=== PATIENT | male | born 1960 | race Caucasian/White ===

== ENCOUNTER 2023-02-08 00:16 | Inpatient (IN) | payer MEDICARE, MEDICAID, SELFPAY ==
[2023-02-08 00:47] VITALS: BP 105/72; PULSE 66; RESP 18; TEMP 36.3; O2SAT 96
[2023-02-08 02:17] VITALS: BMI 24.3
--- NOTE | 2023-02-08 03:30 | PC.ADMIT ---
Pt is a 62yo male admitted to the unit after referral from the [facility] [employer] at [facility] ED. Pt arrived on the unit at 0030. Legal status CV 15mins safety check. Pt has no known medical issues. Pt has no known substance use. Pt unable to participate in admission assessment due to mental status and feeling tired but per Crisis notes, Pt was brought in by the police due to him yelling around the clock for four days at his home. He is severely decompensated by psychosis and a mood disorder. He made complaints about his roommate and states he is angry at them. Assessment reports that he has not been treatment or medication complaint in the community. Pt seems to have some presybeterian/political preoccupation per Crisis notes. Pt's thought process is thoroughly impaired and he is tangential as per Crisis notes. Pt did not seem to be able to articulate why he presented and why he is upset at his roommates as per Crisis noted.Upon arrival to unit, Pt calm, cooperative, flat affect , guarded, making minimal eye contact. Pt thought process during admission process was very tangential or did not respond to questions asked. Dr Lebron notified of Pt's admission and orders obtained. Pt denies any SI/HI/AH/VH upon assessment. Pt reports feeling safe in hospital.
[2023-02-08 09:00] VITALS: BP 127/79; PULSE 66; RESP 16; TEMP 36.8; O2SAT 97
[2023-02-08 10:02] VITALS: BMI 24.4
--- NOTE | 2023-02-08 12:28 | PC.NURSE ---
I attempted assessment of patient this morning. He did not respond appropriately to assessment questions i.e. when asked if he had any cough he stated, That is black magic. and I am the most in touch with the spirits in the whole world
--- NOTE | 2023-02-08 12:43 | HO.PM.IMCN ---
History of Present Illness Data of Consult Service Date: 02/08/23 Requesting physician: Lenny Millard Primary Care Provider: DANIELLE ROBLES MD HPI Reason for consult: medical H&P Patient without significant medical history admitted to psychiatry from [facility] ED with consult placed to hospitalist service for medical H&P. 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 No evidence of trauma. No complaints. Denies etoh use, cigarette smoking, or drug use. Review of Systems Review of Systems: General: No fevers, malaise, unintentional weight loss HEENT: No blurred vision, diplopia. No sore throat, nasal congestion, rhinorrhea, sinus pain, ear pain Cardiovascular: No chest pain, palpitations, or leg edema Respiratory: No shortness of breath, wheezing, cough GI: No abdominal pain, nausea, vomiting, diarrhea, constipation, melena, hematochezia : No dysuria, hematuria, increased urinary frequency, decreased urinary output MSK: No myalgia, back pain Neuro: No headaches, weakness, paresthesias Skin: No rashes or lesions [facility] Medical History No known health problems Social History Household Members: Unknown / Unable to assess Housing: Other Housing Other:: snf Unable to assess alcohol history related to: Unknown Patient Tobacco Use Status: Tobacco use Unknown Use of substances other than those prescribed or required for medical reasons: Unknown Currently Displaying Signs/Symptoms of Drug Intoxication Withdrawal: No Advance Directives: No Advance Directives Information Provided: No Do you have thoughts of harming others: None Do you have a plan to hurt others: No Plan Recently lost weight without trying: Unsure How much weight loss: Unsure Nutrition Risks: No Nutritional Risk Poor oral hygiene: No Meds Allergies Allergy/AdvReac Type Severity Reaction Status Date / Time No Known Allergies Allergy Verified 02/08/23 00:34 Active Medications: Current Medications Acetaminophen (Acetaminophen 325 Mg Tablet) 650 mg PO Q6H PRN PRN Reason: Headache/Pain Mild Scale (1-3) Al Hydroxide/Mg Hydroxide (Magnesium Hydrox/Alum Hydrox 30 Ml Oral.Susp) 30 ml PO Q6H PRN PRN Reason: Heartburn/Nausea Hydroxyzine HCl (Hydroxyzine Hcl 25 Mg Tablet) 25 mg PO Q6H PRN PRN Reason: Anxiety Magnesium Hydroxide (Milk Of Magnesia 30 Ml Oral.Susp) 30 ml PO DAILY PRN PRN Reason: Constipation Nicotine Polacrilex (Nicotine Polacrilex 2 Mg Gum) 4 mg BUCCAL Q2H PRN PRN Reason: Nicotine Cravings Olanzapine (Olanzapine 5 Mg Tablet) 5 mg PO TID PRN PRN Reason: agitation Trazodone HCl (Trazodone Hcl 50 Mg Tablet) 50 mg PO BEDTIME MRX1 PRN PRN Reason: Insomnia Home Medications Medication Instructions Recorded Confirmed Last Taken Type No Known Home Meds 02/08/23 02/08/23 Unknown History Physical Exam Vital Signs and Narrative: Vital Signs: Last Vital Signs Temp 98.3 F 02/08/23 09:00 Pulse 66 02/08/23 09:00 Resp 16 02/08/23 09:00 BP 127/79 02/08/23 09:00 Pulse Ox 97 02/08/23 09:00 O2 Del Method Room Air 02/08/23 09:00 BMI result Body Mass Index 24.4 Constitutional - Awake and Alert, No apparent distress Eyes - PERRLA, EOMI Cardiovascular - S1S2, RRR, No edema Respiratory - Normal lung expansion, Normal respiratory effort, No respiratory distress, CTA bilaterally Gastrointestinal - NT / ND; +BS; No rebound or guarding Extremities - no calf tenderness bilaterally, no swelling Musculoskeletal - Normal inspection, normal ROM Skin - Warm/Dry Neurological - Alert & oriented x3, CN II-XII in tact, 5/5 strength BUE and BLE Psychological - pressured speech, disorganized thoughts, delusional Assessment and Plan (1) Routine medical exam: Status: Acute Plan Patient without significant medical history admitted to psychiatry from [facility] ED with consult placed to hospitalist service for medical H&P. #Psychosis -plan per psychiatry Reviewed hematology studies, chemistries, UA, EKG all of which are reassuring. Pt denies any complaints at this time and denies any known medical history. Vital stable. Thank you for allowing me to participate in this consult. Signing off at this time. Please do not hesitate to call for further questions. Time Spent With Patient Time: Total time managing care of this patient today ____ minutes.
--- NOTE | 2023-02-08 13:33 | HO.PSYADMNOT ---
HPI Date of Service: 02/08/23 Chief Complaint: Unspecified schizophrenia, Delusional D/o Sources of Information: patient interviewed, chart reviewed and crisis/core team assessment reviewed HPI Subjective Notes: Calderon Warning and Conditional Voluntary Narrative: Pt is a 62 yo male who presents with history of psychotic illness, brought to ED by police for non-stop yelling insight his home, disorganized in speech and behavior. Pt brought with him a bag of scabs... and referencing Malcolm Muro, saying he has anus oil and that his blood is ivis to save mankind. On admission patient is disorganized in speech, rambling about many sabianism things, talking about visible vs invisible people... Patient talks about being haunted by his brother. Patient is religiously focused, referring to Malcolm and his interactions with visible/visible people... Patient is tangential, with pressured speech and hard to interrupt; personal lines underwriter has to raise his hand to ask questions; . Initially he acknowledges AH but then says he is not at liberty to disclose that information. Patient knows that he was brought to the hospital by the police since he was yelling inside his house which was upsetting his neighbors. He shares about irritations he has with housemates such as the un-cleanliness of 1 of them and that he plans to move out. Patient references medication and how it is from the devil and that it was made purposely to manipulate people. He says he refuses antipsychotic medication of any kind. Tried to assess for history manic episodes which was difficult however patient said that he sleeps fine and sleeps every night. Past Psychiatric History: Unclear Medical Evaluation Reviewed: Hospitalist Romero Pending [facility] Medical History (Updated 02/08/23 @ 18:10 by Luke Lebron MD) No known health problems Schizoaffective disorder, bipolar type Family History: Brother: Committed suicide by hanging Sister: On a lot of medication Social History: Grew up locally; older brother and older sister Substance History: Deferred Trauma History: Patient found his brother by suicide; untied the noose Diagnostics Vital Signs (24Hr): Vital Signs - 24 hr 02/08/23 00:47 02/08/23 09:00 Temperature 97.4 F 98.3 F Pulse Rate 66 66 Respiratory Rate 18 16 Blood Pressure 105/72 127/79 Pulse Oximetry 96 97 Oxygen Delivery Method Room Air BMI result Body Mass Index 24.4 Meds/Allergies Meds Home Medications Medication Instructions Recorded Confirmed Type No Known Home Meds 02/08/23 02/08/23 History Allergies Allergies Allergy/AdvReac Type Severity Reaction Status Date / Time No Known Allergies Allergy Verified 02/08/23 00:34 Mental Status Exam Mental Status Exam Narrative: Pt is alert and oriented; behavior is cooperative, friendly, mildly hyperactive; patient is not in distress; dressed in hospital attire, disheveled and malodorous; mood is described as okay and affect expansive; eye contact appropriate; Speech is pressured and difficult to interrupt; normal volume and prosody; no psychomotor agitation/retardation present; thought process can be goal directed but gets quickly circumstantial and tangential; Thought content is on various sabianism ideas and trouble with his housemate; patient expresses some paranoid delusional ideations and some grandiosity; denies any SI/HI. Positive for Patients insight and judgment impaired Assessment & Plan Assessment & Plan (1) Schizoaffective disorder, bipolar type: Status: Acute Code(s): F25.0 - Schizoaffective disorder, bipolar type Plan Pt is a 62 yo male who presents with history of psychotic illness, brought to ED by police for non-stop yelling insight his home, disorganized in speech and behavior. Pt brought with him a bag of scabs... and referencing Malcolm Muro, saying he has anus oil and that his blood is ivis to save mankind. On admission patient is disorganized in speech, rambling about many sabianism things, talking about visible vs invisible people... Patient talks about being haunted by his brother. Patient is religiously focused, referring to Malcolm and his interactions with visible/visible people... Patient is tangential, with pressured speech and hard to interrupt; personal lines underwriter has to raise his hand to ask questions; . Initially he acknowledges AH but then says he is not at liberty to disclose that information. Patient knows that he was brought to the hospital by the police since he was yelling inside his house which was upsetting his neighbors. He shares about irritations he has with housemates such as the un-cleanliness of 1 of them and that he plans to move out. Patient references medication and how it is from the devil and that it was made purposely to manipulate people. He says he refuses antipsychotic medication of any kind. Tried to assess for history manic episodes which was difficult however patient said that he sleeps fine and sleeps every night. Impression: Patient is disorganized in speech behavior; seems mildly hyperactive, with pressured speech. Not sure history and while it is possible patient could be bipolar, seems more likely schizoaffective which will be a provisional diagnosis for now. Patient refuses medication and has no insight into psychiatric illness, though he did acknowledge that his yelling was bothering his neighbors and that he would stop. Need to gather collateral and find out if patient has been able to overall function in the community without medication. Plan: CV Q 15 minute checks Will add Zyprexa p.r.n. Patient refuses any scheduled antipsychotics Will try and collect collateral to see if patient has a history of being overall able to l function in the community without medication Labs: CBC, lytes, bun/cr, Ca, UDS, UA all WNL Qtc 420 Patient educated on: diagnosis and medication risk/benefits Informed Consent: does not understand and further education needed Reason for continued inpatient stay Substantial Risk for: med/psych decompensation Statement Statement: I have reviewed the history and physical and performed a pertinent examination on my patient. No changes have occurred unless specified. If the History and Physical was not performed prior to admission, the Hospitalist's service will be consulted for completing the admission physical. Time Spent With Patient Time: Total time managing care of this patient today ____ minutes.
[2023-02-08 20:46] VITALS: BP 120/70; PULSE 78; RESP 18; O2SAT 97
[2023-02-08] MEDS: OLANZapine 5 MG TABLET PO (20:50)
--- NOTE | 2023-02-09 09:31 | P.PNPSI_ITS ---
Subjective Subjective Date of Service: 02/09/23 Reason For Visit: Unspecified schizophrenia, Delusional D/o Interim History: met with patient; discussed with team Pt mostly keeping to himself; intermittently expressing delusional thoughts, talking about the devil. Malodorous and resistant to care. No complaints, no requests. Mental Status Exam Mental Status Exam Narrative: Pt is alert and oriented; behavior is semi-cooperative, some irritability; patient is not in distress; dressed in hospital attire, disheveled and malodorous; mood is described as okay and affect congruent; eye contact appropriate; Speech is a little pressured; normal volume and prosody; no psychomotor agitation/retardation present; thought process can be goal directed but gets quickly circumstantial and tangential; Thought content is on various sabianism ideas and trouble with his housemate; patient expresses some paranoid delusional ideations and some grandiosity; denies any SI/HI. Positive for AH Patients insight and judgment impaired, however maybe close to baseline Diagnostics Vital Signs (24Hr): Vital Signs - 24 hr 02/08/23 20:46 Pulse Rate 78 Respiratory Rate 18 Blood Pressure 120/70 Pulse Oximetry 97 Oxygen Delivery Method Room Air BMI result Body Mass Index 24.4 Medications Medications Current Medications Acetaminophen (Acetaminophen 325 Mg Tablet) 650 mg PO Q6H PRN PRN Reason: Headache/Pain Mild Scale (1-3) Al Hydroxide/Mg Hydroxide (Magnesium Hydrox/Alum Hydrox 30 Ml Oral.Susp) 30 ml PO Q6H PRN PRN Reason: Heartburn/Nausea Hydroxyzine HCl (Hydroxyzine Hcl 25 Mg Tablet) 25 mg PO Q6H PRN PRN Reason: Anxiety Magnesium Hydroxide (Milk Of Magnesia 30 Ml Oral.Susp) 30 ml PO DAILY PRN PRN Reason: Constipation Nicotine Polacrilex (Nicotine Polacrilex 2 Mg Gum) 4 mg BUCCAL Q2H PRN PRN Reason: Nicotine Cravings Olanzapine (Olanzapine 5 Mg Tablet) 5 mg PO TID PRN PRN Reason: agitation Last Admin: 02/08/23 20:50 Dose: 5 mg Trazodone HCl (Trazodone Hcl 50 Mg Tablet) 50 mg PO BEDTIME MRX1 PRN PRN Reason: Insomnia Allergies Allergies Allergy/AdvReac Type Severity Reaction Status Date / Time No Known Allergies Allergy Verified 02/08/23 00:34 Assessment & Plan Assessment & Plan (1) Schizoaffective disorder, bipolar type: Status: Acute Code(s): F25.0 - Schizoaffective disorder, bipolar type Plan Pt is a 62 yo male who presents with history of psychotic illness, brought to ED by police for non-stop yelling insight his home, disorganized in speech and beh avior. Pt brought with him a bag of scabs... and referencing Malcolm Muro, saying he has anus oil and that his blood is ivis to save mankind. On admission patient is disorganized in speech, rambling about many sabianism things, talking about visible vs invisible people... Patient talks about being haunted by his brother. Patient is religiously focused, referring to Malcolm and his interactions with visible/visible people... Patient is tangential, with pressured speech and hard to interrupt; internal communications writer has to raise his hand to ask questions; . Initially he acknowledges AH but then says he is not at liberty to disclose that information. Patient knows that he was brought to the hospital by the police since he was yelling inside his house which was upsetting his neighbors. He shares about irritations he has with housemates such as the un- cleanliness of 1 of them and that he plans to move out. Patient references medication and how it is from the devil and that it was made purposely to manipulate people. He says he refuses antipsychotic medication of any kind. Tried to assess for history manic episodes which was difficult however patient said that he sleeps fine and sleeps every night. Impression: Patient is disorganized in speech behavior; seems mildly hyperactive, with pressured speech. Not sure history and while it is possible patient could be bipolar, seems more likely schizoaffective which will be a provisional diagnosis for now. Patient refuses medication and has no insight into psychiatric illness, though he did acknowledge that his yelling was bothering his neighbors and that he would stop. Need to gather collateral and find out if patient has been able to overall function in the community without medication. Hospital course: 02/09 patient keeping to himself, irritable, intermittently expressing delusional thoughts; refusing medications Plan: 3 day Q 15 minute checks Will add Zyprexa p.r.n. Patient refuses any scheduled antipsychotics Will try and collect collateral to see if patient has a history of being overall able to l function in the community without medication Labs: CBC, lytes, bun/cr, Ca, UDS, UA all WNL Qtc 420 Patient educated on: diagnosis Informed Consent: does not understand Reason for continued inpatient stay Substantial Risk for: med/psych decompensation Time Spent With Patient Time: Total time managing care of this patient today ____ minutes.
[2023-02-09 09:35] VITALS: BP 178/90; PULSE 98; RESP 16; TEMP 36.4; O2SAT 98
[2023-02-09] MEDS: OLANZapine 5 MG TABLET PO (21:15)
[2023-02-09 21:16] VITALS: BP 120/71; PULSE 71; TEMP 36.9; O2SAT 97
[2023-02-10 08:00] VITALS: BP 127/78; PULSE 60; RESP 18; TEMP 36.6; O2SAT 99
[2023-02-10] MEDS: OLANZapine 5 MG TABLET PO ×3 (09:25→21:29)
--- NOTE | 2023-02-10 14:19 | HO.PSYCHPN ---
Subjective Subjective Date of Service: 02/10/23 Reason For Visit: Unspecified schizophrenia, Delusional D/o Subjective Notes: 3 Day ( 02/14/2023) Medical Problems Affecting Mental Status: No Interim History: met with patient. Discussed with Nursing. Chart reviewed. As per nursing has been hyperverbal, agitated, talking to the devil and speaking about curses. Still picking skin. Did ask to be allowed to shave but then stated he was also going to shave his head and his arms. With blog writer poor ADLs. Denies depression. Does endorse paranoia. Reports appetite and sleep are good. Has been refusing medications. Does not feel he needs any treatment Medication Compliance: No Side effects from medications: No Attending Groups: No Review of Systems Acute medical concerns: No Review of Systems Review of Systems Yes Unobtainable due to mental status Mental Status Exam Mental Status Exam Narrative: Pt is alert and oriented; behavior is semi-cooperative, some irritability; patient is not in distress; dressed in hospital attire, disheveled and malodorous; mood is described as okay and affect congruent; eye contact appropriate; Speech is a little pressured; normal volume and prosody; no psychomotor agitation/retardation present; thought process can be goal directed but gets quickly circumstantial and tangential; Thought content is on various caodaism ideas and trouble with his housemate; patient expresses some paranoid delusional ideations and some grandiosity; denies any SI/HI. denies hallucinations, but does appear internally preoccupied. Insight and judgment poor Diagnostics Vital Signs (24Hr): Vital Signs - 24 hr 02/09/23 21:16 02/10/23 08:00 Temperature 98.4 F 97.8 F Pulse Rate 71 60 Respiratory Rate 18 Blood Pressure 120/71 127/78 Pulse Oximetry 97 99 Oxygen Delivery Method Room Air Room Air BMI result Body Mass Index 24.4 Medications Medications Current Medications Acetaminophen (Acetaminophen 325 Mg Tablet) 650 mg PO Q6H PRN PRN Reason: Headache/Pain Mild Scale (1-3) Al Hydroxide/Mg Hydroxide (Magnesium Hydrox/Alum Hydrox 30 Ml Oral.Susp) 30 ml PO Q6H PRN PRN Reason: Heartburn/Nausea Hydroxyzine HCl (Hydroxyzine Hcl 25 Mg Tablet) 25 mg PO Q6H PRN PRN Reason: Anxiety Magnesium Hydroxide (Milk Of Magnesia 30 Ml Oral.Susp) 30 ml PO DAILY PRN PRN Reason: Constipation Nicotine Polacrilex (Nicotine Polacrilex 2 Mg Gum) 4 mg BUCCAL Q2H PRN PRN Reason: Nicotine Cravings Olanzapine (Olanzapine 5 Mg Tablet) 5 mg PO TID PRN PRN Reason: agitation Last Admin: 02/10/23 09:25 Dose: 5 mg Trazodone HCl (Trazodone Hcl 50 Mg Tablet) 50 mg PO BEDTIME MRX1 PRN PRN Reason: Insomnia Allergies Allergies Allergy/AdvReac Type Severity Reaction Status Date / Time No Known Allergies Allergy Verified 02/08/23 00:34 Assessment & Plan Assessment & Plan (1) Schizoaffective disorder, bipolar type: Status: Acute Code(s): F25.0 - Schizoaffective disorder, bipolar type Plan Pt is a 62 yo male who presents with history of psychotic illness, brought to ED by police for non-stop yelling insight his home, disorganized in speech and behavior. Pt brought with him a bag of scabs... and referencing Malcolm Muro, saying he has anus oil and that his blood is ivis to save mankind. On admission patient is disorganized in speech, rambling about many caodaism things, talking about visible vs invisible people... Patient talks about being haunted by his brother. Patient is religiously focused, referring to Malcolm and his interactions with visible/visible people... Patient is tangential, with pressured speech and hard to interrupt; blog writer has to raise his hand to ask questions; . Initially he acknowledges AH but then says he is not at liberty to disclose that information. Patient knows that he was brought to the hospital by the police since he was yelling inside his house which was upsetting his neighbors. He shares about irritations he has with housemates such as the un-cleanliness of 1 of them and that he plans to move out. Patient references medication and how it is from the devil and that it was made purposely to manipulate people. He says he refuses antipsychotic medication of any kind. Tried to assess for history manic episodes which was difficult however patient said that he sleeps fine and sleeps every night. Impression: Patient is disorganized in speech behavior; seems mildly hyperactive, with pressured speech. Not sure history and while it is possible patient could be bipolar, seems more likely schizoaffective which will be a provisional diagnosis for now. Patient refuses medication and has no insight into psychiatric illness, though he did acknowledge that his yelling was bothering his neighbors and that he would stop. Need to gather collateral and find out if patient has been able to overall function in the community without medication. Hospital course: 02/09 patient keeping to himself, irritable, intermittently expressing delusional thoughts; refusing medications Plan: 3 day Q 15 minute checks Will add Zyprexa p.r.n. Patient refuses any scheduled antipsychotics Will try and collect collateral to see if patient has a history of being overall able to l function in the community without medication Labs: CBC, lytes, bun/cr, Ca, UDS, UA all WNL Qtc 420 02/10/23: continue to offer medications. Three-day notice in place which expires on 02/14/2023 Reason for continued inpatient stay Substantial Risk for: inability to function Time Spent With Patient Time: Total time managing care of this patient today ____ minutes.
--- NOTE | 2023-02-10 16:18 | PC.NURSE ---
Pt requested a shave from T/W and was assisted in his bathroom. Pt began talking about evil and how it lived in his hair. Pt shaving the same areas several times and then shaved an eyebrow. Pt was redirected by TW and said, these have to go, they are the devils serpents. I don't know if you believe in paranormal, but I've been tortured by them for 603 days. TW took razer from pt after he shaved brows. Pt wanted to shave his head and arms. Pt also referenced that they were responsible for all the bad in the world.
--- NOTE | 2023-02-10 18:19 | PC.NURSE ---
Pt in room self dialoguing, talking about the word curse , and the unseen
[2023-02-10 20:54] VITALS: BP 148/93; PULSE 79; TEMP 36.4; O2SAT 96
[2023-02-11 08:00] VITALS: BP 135/80; PULSE 79; RESP 18; TEMP 36.7; O2SAT 97
[2023-02-11] MEDS: OLANZapine 5 MG TABLET PO (09:29)
--- NOTE | 2023-02-11 13:22 | HO.PSYCHPN ---
Subjective Subjective Date of Service: 02/11/23 Reason For Visit: Unspecified schizophrenia, Delusional D/o Subjective Notes: 3 Day Interim History: met with patient. Discussed with Nursing. Still hyperverbal, agitated, talking to the devil and speaking about curses. Still picking skin. Aceptsc prn olanzapine when offered. With freelance writer poor ADLs. Denies depression. Does endorse paranoia. Reports appetite and sleep are good. Does not feel he needs any treatment Medication Compliance: Intermittent Side effects from medications: No Attending Groups: No Review of Systems Acute medical concerns: No Review of Systems Review of Systems General: No fevers, malaise, unintentional weight loss HEENT: No blurred vision, diplopia. No sore throat, nasal congestion, rhinorrhea, sinus pain, ear pain Cardiovascular: No chest pain, palpitations, or leg edema Respiratory: No shortness of breath, wheezing, cough GI: No abdominal pain, nausea, vomiting, diarrhea, constipation, melena, hematochezia : No dysuria, hematuria, increased urinary frequency, decreased urinary output MSK: No myalgia, back pain Neuro: No headaches, weakness, paresthesias Skin: No rashes or lesions Yes Unobtainable due to mental status Mental Status Exam Mental Status Exam Narrative: Pt is alert and oriented; behavior is semi-cooperative, some irritability; patient is not in distress; dressed in hospital attire, disheveled and malodorous; mood is described as okay and affect congruent; eye contact appropriate; Speech is a little pressured; normal volume and prosody; no psychomotor agitation/retardation present; thought process can be goal directed but gets quickly circumstantial and tangential; Thought content is on various protestant ideas and trouble with his housemate; patient expresses some paranoid delusional ideations and some grandiosity; denies any SI/HI. denies hallucinations, but does appear internally preoccupied. Insight and judgment poor Diagnostics Vital Signs (24Hr): Vital Signs - 24 hr 02/10/23 20:54 02/11/23 08:00 Temperature 97.6 F 98.1 F Pulse Rate 79 79 Respiratory Rate 18 Blood Pressure 148/93 H 135/80 Pulse Oximetry 96 97 Oxygen Delivery Method Room Air Room Air BMI result Body Mass Index 24.4 Medications Medications Current Medications Acetaminophen (Acetaminophen 325 Mg Tablet) 650 mg PO Q6H PRN PRN Reason: Headache/Pain Mild Scale (1-3) Al Hydroxide/Mg Hydroxide (Magnesium Hydrox/Alum Hydrox 30 Ml Oral.Susp) 30 ml PO Q6H PRN PRN Reason: Heartburn/Nausea Hydroxyzine HCl (Hydroxyzine Hcl 25 Mg Tablet) 25 mg PO Q6H PRN PRN Reason: Anxiety Magnesium Hydroxide (Milk Of Magnesia 30 Ml Oral.Susp) 30 ml PO DAILY PRN PRN Reason: Constipation Nicotine Polacrilex (Nicotine Polacrilex 2 Mg Gum) 4 mg BUCCAL Q2H PRN PRN Reason: Nicotine Cravings Olanzapine (Olanzapine 5 Mg Tablet) 5 mg PO TID PRN PRN Reason: agitation Last Admin: 02/11/23 09:29 Dose: 5 mg Trazodone HCl (Trazodone Hcl 50 Mg Tablet) 50 mg PO BEDTIME MRX1 PRN PRN Reason: Insomnia Allergies Allergies Allergy/AdvReac Type Severity Reaction Status Date / Time No Known Allergies Allergy Verified 02/08/23 00:34 Assessment & Plan Assessment & Plan (1) Schizoaffective disorder, bipolar type: Status: Acute Code(s): F25.0 - Schizoaffective disorder, bipolar type Plan Pt is a 62 yo male who presents with history of psychotic illness, brought to ED by police for non-stop yelling insight his home, disorganized in speech and behavior. Pt brought with him a bag of scabs... and referencing Malcolm Muro, saying he has anus oil and that his blood is ivis to save mankind. On admission patient is disorganized in speech, rambling about many protestant things, talking about visible vs invisible people... Patient talks about being haunted by his brother. Patient is religiously focused, referring to Malcolm and his interactions with visible/visible people... Patient is tangential, with pressured speech and hard to interrupt; freelance writer has to raise his hand to ask questions; . Initially he acknowledges AH but then says he is not at liberty to disclose that information. Patient knows that he was brought to the hospital by the police since he was yelling inside his house which was upsetting his neighbors. He shares about irritations he has with housemates such as the un-cleanliness of 1 of them and that he plans to move out. Patient references medication and how it is from the devil and that it was made purposely to manipulate people. He says he refuses antipsychotic medication of any kind. Tried to assess for history manic episodes which was difficult however patient said that he sleeps fine and sleeps every night. Impression: Patient is disorganized in speech behavior; seems mildly hyperactive, with pressured speech. Not sure history and while it is possible patient could be bipolar, seems more likely schizoaffective which will be a provisional diagnosis for now. Patient refuses medication and has no insight into psychiatric illness, though he did acknowledge that his yelling was bothering his neighbors and that he would stop. Need to gather collateral and find out if patient has been able to overall function in the community without medication. Hospital course: 02/09 patient keeping to himself, irritable, intermittently expressing delusional thoughts; refusing medications Plan: 3 day Q 15 minute checks Will add Zyprexa p.r.n. Patient refuses any scheduled antipsychotics Will try and collect collateral to see if patient has a history of being overall able to l function in the community without medication Labs: CBC, lytes, bun/cr, Ca, UDS, UA all WNL Qtc 420 02/11/23: schedule olanzapine 5mg tid. Three-day notice in place which expires on 02/14/2023 Reason for continued inpatient stay Substantial Risk for: inability to function Time Spent With Patient Time: Total time managing care of this patient today ____ minutes.
[2023-02-11 20:20] VITALS: BP 109/71; PULSE 63; RESP 18; TEMP 36.4; O2SAT 97
--- NOTE | 2023-02-12 03:05 | PC.NURSE ---
Chad was mainly isloative throughout the evening. he spent some time in the day room reading and watching movies. he denies suicidal/homicidal ideation, auditory/visual hallucinations, depression and anxiety however he has poor eye contact, and appears to be internally preoccupied. no behavioral concerns, monitor for safety, continue Plan of Care
--- NOTE | 2023-02-12 12:06 | HO.PSYCHPN ---
Subjective Subjective Date of Service: 02/12/23 Reason For Visit: Unspecified schizophrenia, Delusional D/o Interim History: Met with patient; discussed with team Patient lying in bed but alert and overall friendly. Continues to self dialogue and talk about the devil, Malcolm, pots this airline pilot flight instructor. He reports sleeping well and staff reports he is less irritable. Patient has shaved his eyebrows and short story writer inquired. Patient said he does not want to tell short story writer for fear of short story writer being cursed by knowing the answer and he wanted to protect short story writer from this. Mostly keeping to himself and remains in behavioral and impulse control. Mental Status Exam Mental Status Exam Narrative: Pt is alert and oriented; behavior mostly isolating but cooperative, friendly, calm on approach; intermittently talking to self; patient is not in distress; dressed in hospital attire, shaved eyebrows; marginal malodorous; mood is described as okay and affect congruent; eye contact appropriate; Speech is regular rate, volume, and prosody; no psychomotor agitation/retardation present; thought process can be goal directed but gets quickly circumstantial; Thought content is on various delusional, some paranoid advent ideas; denies any SI/HI. denies hallucinations, but does appear internally preoccupied. Insight and judgment impaired but likely adequate and likely at baseline Diagnostics Vital Signs (24Hr): Vital Signs - 24 hr 02/11/23 20:20 Temperature 97.6 F Pulse Rate 63 Respiratory Rate 18 Blood Pressure 109/71 Pulse Oximetry 97 Oxygen Delivery Method Room Air BMI result Body Mass Index 24.4 Medications Medications Current Medications Acetaminophen (Acetaminophen 325 Mg Tablet) 650 mg PO Q6H PRN PRN Reason: Headache/Pain Mild Scale (1-3) Al Hydroxide/Mg Hydroxide (Magnesium Hydrox/Alum Hydrox 30 Ml Oral.Susp) 30 ml PO Q6H PRN PRN Reason: Heartburn/Nausea Hydroxyzine HCl (Hydroxyzine Hcl 25 Mg Tablet) 25 mg PO Q6H PRN PRN Reason: Anxiety Magnesium Hydroxide (Milk Of Magnesia 30 Ml Oral.Susp) 30 ml PO DAILY PRN PRN Reason: Constipation Nicotine Polacrilex (Nicotine Polacrilex 2 Mg Gum) 4 mg BUCCAL Q2H PRN PRN Reason: Nicotine Cravings Olanzapine (Olanzapine 5 Mg Tablet) 5 mg PO TID PRN PRN Reason: agitation Last Admin: 02/11/23 09:29 Dose: 5 mg Olanzapine (Olanzapine 5 Mg Tablet) 5 mg PO TID DINA Last Admin: 02/12/23 09:31 Dose: 5 mg Trazodone HCl (Trazodone Hcl 50 Mg Tablet) 50 mg PO BEDTIME MRX1 PRN PRN Reason: Insomnia Allergies Allergies Allergy/AdvReac Type Severity Reaction Status Date / Time No Known Allergies Allergy Verified 02/08/23 00:34 Assessment & Plan Assessment & Plan (1) Schizoaffective disorder, bipolar type: Status: Acute Code(s): F25.0 - Schizoaffective disorder, bipolar type Plan Pt is a 62 yo male who presents with history of psychotic illness, brought to ED by police for non-stop yelling insight his home, disorganized in speech and behavior. Pt brought with him a bag of scabs... and referencing Malcolm Muro, saying he has anus oil and that his blood is ivis to save mankind. On admission patient is disorganized in speech, rambling about many advent things, talking about visible vs invisible people... Patient talks about being haunted by his brother. Patient is religiously focused, referring to Malcolm and his interactions with visible/visible people... Patient is tangential, with pressured speech and hard to interrupt; short story writer has to raise his hand to ask questions; . Initially he acknowledges AH but then says he is not at liberty to disclose that information. Patient knows that he was brought to the hospital by the police since he was yelling inside his house which was upsetting his neighbors. He shares about irritations he has with housemates such as the un-cleanliness of 1 of them and that he plans to move out. Patient references medication and how it is from the devil and that it was made purposely to manipulate people. He says he refuses antipsychotic medication of any kind. Tried to assess for history manic episodes which was difficult however patient said that he sleeps fine and sleeps every night. Impression: Patient is disorganized in speech behavior; seems mildly hyperactive, with pressured speech. Not sure history and while it is possible patient could be bipolar, seems more likely schizoaffective which will be a provisional diagnosis for now. Patient refuses medication and has no insight into psychiatric illness, though he did acknowledge that his yelling was bothering his neighbors and that he would stop. Need to gather collateral and find out if patient has been able to overall function in the community without medication. Hospital course: 02/09 patient keeping to himself, irritable, intermittently expressing delusional thoughts; refusing medications Plan: 3 day Q 15 minute checks Will add Zyprexa p.r.n. Patient refuses any scheduled antipsychotics Will try and collect collateral to see if patient has a history of being overall able to l function in the community without medication Labs: CBC, lytes, bun/cr, Ca, UDS, UA all WNL Qtc 420 02/11/23: schedule olanzapine 5mg tid. Three-day notice in place which expires on 02/14/202302/12 pt calm; he's remained in behavioral on the unit; no insight and remains preoccupied with paranoid delusional thinking, but this seems to be baseline for him. No SI/HI. Pt refuses medication but has a history of being able to remain in community, overall functioning well enough, without medications. If pt remains stable, will likely dc. Patient educated on: diagnosis Informed Consent: does not understand Reason for continued inpatient stay Substantial Risk for: stable for discharge Time Spent With Patient Time: Total time managing care of this patient today ____ minutes.
[2023-02-12] MEDS: Magnesium Hydrox/Alum Hydrox 30 ML ORAL.SUSP PO (13:05)
--- NOTE | 2023-02-13 08:42 | PC.NURSE ---
pt refused vitals, stated I don't really want them done because I know there's nothing wrong with me. Pt also stated he doesn't like his BP being checked because it hurts his arm.
--- NOTE | 2023-02-13 15:13 | HO.PSYCHPN ---
Subjective Subjective Date of Service: 02/13/23 Reason For Visit: Unspecified schizophrenia, Delusional D/o Interim History: met with patient. Discussed with Nursing. Reportedly isolating to his room. Remains religiously preoccupied. Self dialoguing. Told RN Jayleen silva are a part of Satan. He is difficult to engage today and avoiding interaction with this internal communications writer. He didn't want to talk. Denies depression. Does endorse paranoia. Reports appetite and sleep are good. Does not feel he needs any treatment Review of Systems Review of Systems General: No fevers, malaise, unintentional weight loss HEENT: No blurred vision, diplopia. No sore throat, nasal congestion, rhinorrhea, sinus pain, ear pain Cardiovascular: No chest pain, palpitations, or leg edema Respiratory: No shortness of breath, wheezing, cough GI: No abdominal pain, nausea, vomiting, diarrhea, constipation, melena, hematochezia : No dysuria, hematuria, increased urinary frequency, decreased urinary output MSK: No myalgia, back pain Neuro: No headaches, weakness, paresthesias Skin: No rashes or lesions Yes Unobtainable due to mental status Mental Status Exam Mental Status Exam Narrative: Pt is alert and oriented; behavior is semi-cooperative, some irritability; patient is not in distress; dressed in hospital attire, disheveled and malodorous; mood is described as okay and affect congruent; eye contact appropriate; Speech is a little pressured; normal volume and prosody; no psychomotor agitation/retardation present; thought process can be goal directed but gets quickly circumstantial and tangential; Thought content is on various bahai ideas and trouble with his housemate; patient expresses some paranoid delusional ideations and some grandiosity; denies any SI/HI. denies hallucinations, but does appear internally preoccupied. Insight and judgment poor Diagnostics Vital Signs (24Hr): BMI result Body Mass Index 24.4 Medications Medications Current Medications Acetaminophen (Acetaminophen 325 Mg Tablet) 650 mg PO Q6H PRN PRN Reason: Headache/Pain Mild Scale (1-3) Al Hydroxide/Mg Hydroxide (Magnesium Hydrox/Alum Hydrox 30 Ml Oral.Susp) 30 ml PO Q6H PRN PRN Reason: Heartburn/Nausea Last Admin: 02/12/23 13:05 Dose: 30 ml Hydroxyzine HCl (Hydroxyzine Hcl 25 Mg Tablet) 25 mg PO Q6H PRN PRN Reason: Anxiety Magnesium Hydroxide (Milk Of Magnesia 30 Ml Oral.Susp) 30 ml PO DAILY PRN PRN Reason: Constipation Nicotine Polacrilex (Nicotine Polacrilex 2 Mg Gum) 4 mg BUCCAL Q2H PRN PRN Reason: Nicotine Cravings Olanzapine (Olanzapine 5 Mg Tablet) 5 mg PO TID PRN PRN Reason: agitation Last Admin: 02/11/23 09:29 Dose: 5 mg Olanzapine (Olanzapine 5 Mg Tablet) 5 mg PO TID DINA Last Admin: 02/13/23 10:06 Dose: 5 mg Trazodone HCl (Trazodone Hcl 50 Mg Tablet) 50 mg PO BEDTIME MRX1 PRN PRN Reason: Insomnia Allergies Allergies Allergy/AdvReac Type Severity Reaction Status Date / Time No Known Allergies Allergy Verified 02/08/23 00:34 Assessment & Plan Assessment & Plan (1) Schizoaffective disorder, bipolar type: Status: Acute Code(s): F25.0 - Schizoaffective disorder, bipolar type Plan Pt is a 62 yo male who presents with history of psychotic illness, brought to ED by police for non-stop yelling insight his home, disorganized in speech and behavior. Pt brought with him a bag of scabs... and referencing Malcolm Muro, saying he has anus oil and that his blood is ivis to save mankind. On admission patient is disorganized in speech, rambling about many bahai things, talking about visible vs invisible people... Patient talks about being haunted by his brother. Patient is religiously focused, referring to Malcolm and his interactions with visible/visible people... Patient is tangential, with pressured speech and hard to interrupt; internal communications writer has to raise his hand to ask questions; . Initially he acknowledges AH but then says he is not at liberty to disclose that information. Patient knows that he was brought to the hospital by the police since he was yelling inside his house which was upsetting his neighbors. He shares about irritations he has with housemates such as the un-cleanliness of 1 of them and that he plans to move out. Patient references medication and how it is from the devil and that it was made purposely to manipulate people. He says he refuses antipsychotic medication of any kind. Tried to assess for history manic episodes which was difficult however patient said that he sleeps fine and sleeps every night. Impression: Patient is disorganized in speech behavior; seems mildly hyperactive, with pressured speech. Not sure history and while it is possible patient could be bipolar, seems more likely schizoaffective which will be a provisional diagnosis for now. Patient refuses medication and has no insight into psychiatric illness, though he did acknowledge that his yelling was bothering his neighbors and that he would stop. Need to gather collateral and find out if patient has been able to overall function in the community without medication. Hospital course: 02/09 patient keeping to himself, irritable, intermittently expressing delusional thoughts; refusing medications Plan: 3 day Q 15 minute checks Will add Zyprexa p.r.n. Patient refuses any scheduled antipsychotics Will try and collect collateral to see if patient has a history of being overall able to l function in the community without medication Labs: CBC, lytes, bun/cr, Ca, UDS, UA all WNL Qtc 420 02/11/23: schedule olanzapine 5mg tid. Three-day notice in place which expires on 02/14/202302/13: Continue current treatment plan. Reason for continued inpatient stay Substantial Risk for: inability to function and rapid decompensation Time Spent With Patient Time: Total time managing care of this patient today ____ minutes.
[2023-02-13 21:55] VITALS: RESP 16
[2023-02-14 08:00] VITALS: BP 120/86; PULSE 77; RESP 18; TEMP 36.6; O2SAT 98
--- NOTE | 2023-02-14 10:31 | PM.PSYDC ---
DS: Providers Provider Date of Service: 02/14/23 Date of admission: 02/08/23 00:16 Primary care physician: DANIELLE ROQUE MD Consults: 02/08/23 00:44 Consult to Hospitalist Routine Comment: Consulting Provider: Hospitalist Reason For Exam: admission physical DS: Diagnosis Discharge Diagnosis (1) Schizoaffective disorder, bipolar type: Status: Acute DS: Medications Discharge Medications Home Medications: Previous Rx's Medication Instructions Recorded olanzapine 5 mg tablet 5 mg PO TID 30 days #90 tabs 02/14/23 Mental Status Exam Mental Status Exam Narrative: Pt is alert and oriented; behavior is cooperative, no irritability; patient is not in distress; dressed in hospital attire, disheveled; mood is described as good and affect congruent; eye contact appropriate; Speech is not pressured; normal volume and prosody; no psychomotor agitation/retardation present; thought process is linear and logical; Thought content is without paranoia or delusions; patient expresses no grandiosity; denies any SI/HI. denies hallucinations. Insight and judgment improved. DS: Summary Hospital Course Hospital Course: per 02/08 admission note: Pt is a 62 yo male who presents with history of psychotic illness, brought to ED by police for non-stop yelling insight his home, disorganized in speech and behavior. Pt brought with him a bag of scabs... and referencing Malcolm Muro, saying he has anus oil and that his blood is ivis to save mankind.? On admission patient is disorganized in speech, rambling about many restorationism things, talking about visible vs invisible people...? Patient talks about being haunted by his brother.? Patient is religiously focused, referring to Malcolm and his interactions with visible/visible people...? Patient is tangential, with pressured speech and hard to interrupt; job specification writer has to raise his hand to ask questions; .? Initially he acknowledges AH but then says he is not at liberty to disclose that information.? Patient knows that he was brought to the hospital by the police since he was yelling inside his house which was upsetting his neighbors.? He shares about irritations he has with housemates such as the un-cleanliness of 1 of them and that he plans to move out.? Patient references medication and how it is from the devil and that it was made purposely to manipulate people.? He says he refuses antipsychotic medication of any kind.? Tried to assess for history manic episodes which was difficult however patient said that he sleeps fine and sleeps every night. Past Psychiatric History: Unclear Medical Evaluation Reviewed: Hospitalist [facility] Pending [facility] Medical History?(Updated 02/08/23 @ 18:10 by Luke Lebron MD) No known health problems Schizoaffective disorder, bipolar type Family History: Brother: Committed suicide by hanging Sister:? On a lot of medication Social History: Grew up locally; older brother and older sister Substance History: Deferred Trauma History: Patient found his brother by suicide; untied the noose Precis: 02/08: Will add Zyprexa p.r.n. Patient refuses any scheduled antipsychotics. 02/09 patient keeping to himself, irritable, intermittently expressing delusional thoughts; refusing medications. 02/10:? continue to offer medications.? Three-day notice in place which expires on? 02/14/202302/11: schedule olanzapine 5mg tid. Three-day notice in place which expires on? 02/14/202302/12: pt calm; he's remained in behavioral on the unit; no insight and remains preoccupied with paranoid delusional thinking, but this seems to be baseline for him. No SI/HI. Pt refuses medication but has a history of being able to remain in community, overall functioning well enough, without medications. If pt remains stable, will likely dc.? 02/13: Continue current treatment plan. 02/14: stable. calm, cooperative, organized for brief and relatively superficial interaction. meds reviewed, reconciled, prescribed. pt discharged as per plan. Time Spent with Patient Time attestation: Total time managing care of this patient today ____ minutes. Time spent: Greater than 30 minutes Discharge Plan Discharge Anticipated Discharge Date/Time: 02/14/23 10:29 Patient Disposition: Home, Self-Care Discharge Diagnosis: Schizoaffective Disorder, Bipolar Type Referrals: Danielle Roque MD [Primary Care Provider] - 1 Week (PCP advised they will call patient with appt. for follow-up. Dr. Danielle roque [address] [place], [place] [id number] ) Discharge Medications: New olanzapine 5 mg Tablet 5 mg PO TID 30 Days Qty: 90 0RF Discharge Orders: Discharge Order (Routine); Ordered 02/14/23 Ordered By: Lenny Millard Diet: Advance to usual diet Activity on Discharge: As tolerated Stand Alone Forms: Patient Portal Discharge page, Community Support Care Plan Goals: remain safe and stable in the outpatient treatment setting Health Concerns: none Plan of Treatment: take medications as prescribed, attend appointments as scheduled Assessment: not at imminent risk of harm to self or others Discharge Date/Time: 02/14/23 11:25
== END 2023-02-14 11:25 | disposition home or self-care (01) | DRG 885 ==
PROVIDERS: Admitting Provider Psychiatry & Neurology Psychiatry; PCP Family Medicine; Visit Provider Psychiatry & Neurology Psychiatry
DX: F25.0 Schizoaffective disorder, bipolar type (principal); Z87.891 Personal history of nicotine dependence